=== PATIENT | female | born 1985 | race Hispanic/Latino ===

== ENCOUNTER 2017-08-03 05:31 | Emergency (ER) | payer MEDICAID, SELFPAY ==
[2017-08-03] MEDS ORDERED: Famotidine 20 MG TAB ONE (06:19)
[2017-08-03] MEDS ORDERED: predniSONE 20 MG TAB ONE (06:19)
== END 2017-08-03 06:26 | disposition home or self-care (01) ==
LOC: ERS 05:31
DX: T78.1XXA Other adverse food reactions, not elsewhere classified, initial encounter (principal); F41.9 Anxiety disorder, unspecified; Z79.899 Other long term (current) drug therapy
CPT/HCPCS: 99282; J7506

== ENCOUNTER 2017-08-04 14:22 | Emergency (ER) | payer MEDICAID ==
[2017-08-04] MEDS ORDERED: hydrOXYzine 25 MG TAB ONE (15:21)
== END 2017-08-04 15:26 | disposition home or self-care (01) ==
LOC: ERS 14:22
DX: L50.9 Urticaria, unspecified (principal); F41.9 Anxiety disorder, unspecified; Z79.899 Other long term (current) drug therapy
CPT/HCPCS: 99283

== ENCOUNTER 2018-02-21 15:06 | Outpatient (CLI) | payer OTHER | END 2018-02-21 15:07 | disposition home or self-care (01) | LOC: BICRAD 15:06 | PROVIDERS: ATTEND Nurse Practitioner Family | DX: M54.89 Other dorsalgia (principal) | CPT/HCPCS: 72070 ==

== ENCOUNTER 2020-10-27 10:49 | Outpatient (CLI) | payer OTHER | END 2020-10-27 10:50 | disposition home or self-care (01) | LOC: BICULT 10:49 | PROVIDERS: ATTEND Nurse Practitioner Family | DX: R10.84 Generalized abdominal pain (principal) | CPT/HCPCS: 93975 ==